=== PATIENT | female | born 1975 | race Two or more races ===

== ENCOUNTER 2018-07-02 19:25 | Emergency (ER) | payer OTHER ==
[2018-07-02 19:32] VITALS: BP 133/63; PULSE 85; BMI 25.4
--- NOTE | 2018-07-02 19:35 | PDOC ---
History of Present Illness - History of Present Illness Initial Comments: 07/02/18 20:44 Patient is a 42 year old female with a significant past medical history of Sarcoidosis, Afib, who presents to the ED with complaints of left arm numbness that began this morning. Patient reports experiencing constant left arm numbness that she states begins at her elbow and travels down to her finger tips. She reports left arm numbness feels like a tingling, pins and needle sensation. Patient reports going to Urgent care this afternoon and was advised to come into the ED for further evaluation after results indicated she had an elevated D dimer. Denies chest pain, Sob. Denies nausea, vomiting. Denies fevers, chills. Denies contact with sick individuals, out of state travelling. Denies constipation, diarrhea. Denies dysuria, hematuria. Denies trauma to affected area. Denies any other symptoms. Allergies: None Social history: No smoking. No illicit drugs. No alcohol. Surgical history: None PMD: Dr. Glover Adult ROS General: No fevers or chills, no weakness, no weight loss HEENT: No change in vision. No sore throat, No ear pain Cardiovascular: No chest pain or shortness of breath Respiratory:No cough, or wheezing. Gastrointestinal: No nausea, vomiting, diarrhea or constipation, No rectal bleeding Genitourinary: No dysuria, hematuria, or frequency Musculoskeletal: No joint or muscle pain or swelling Neurologic: No headache, vertigo, dizziness or loss of consciousness Psychiatric: No depression Skin: No rashes or easy bruising Endocrine: No increased thirst or abnormal weight change Allergic: No skin or latex allergy All other systems reviewed and normal Adult PE General: Well-nourished well-developed individual, no acute distress HEENT: Throat: Normal, tonsils normal, no erythema or exudate Neck: Supple, no meningeal signs, no lymphadenopathy Eyes:Pupils equal reactive and round, extraocular motion intact Chest: Nontender to palpation Cardiac: S1-S2 normal, regular rate and rhythm, no murmurs rubs or gallops Respiratory: Lungs clear to auscultation bilateral Abdomen: Soft, nondistended, normal bowel sounds, nontender to palpation diffusely Extremities: Warm, dry, no cyanosis, clubbing, or edema Skin: No rashes Neuro: Alert and oriented x3, nonfocal exam, grossly intact, normal gait Psych: Normal mood and affect <Charles,Stevie - Last Filed: 07/02/18 20:44> - General History Source: Patient Exam Limitations: No Limitations - History of Present Illness Initial Comments: A portion of this note was documented by scribe services under my direction. I have reviewed the details of the note, within reason, and agree with the documentation with the following case summary and management plan written by me. Patient treated in the ED. Nursing notes are reviewed and incorporated into the medical decision-making. Vital signs reviewed. Assessment and plan: This is a 42-year-old female who comes in after being sent in from the urgent care center for evaluation. Patient has a history of sarcoidosis and has had 1 day of chest pain with some associated arm discomfort. Patient had a d-dimer done at the urgent care center and was told that it was elevated and she should come to the emergency department for further evaluation 07/02/18 23:18 Cardiogram shows normal sinus arrhythmia with a rate of 75 normal intervals no acute ST-T wave changes CT angiogram of her chest is negative for any acute pathology, specifically no pulmonary embolism CT of her head is negative for any acute pathology Patient discharged home will follow up with her sarcoidosis daughter DrZakia <Flip Gayle I - Last Filed: 07/02/18 23:21> - General Chief Complaint: Pain, Acute Stated Complaint: ELEVATED D-DIMER/CHEST PAIN Time Seen by Provider: 07/02/18 19:34 Past History <Stevie Soto - Last Filed: 07/02/18 20:44> - Past Medical History Cardiac Disorders: (MVP) COPD: No Other medical history: SARCODOSIS - Suicide/Smoking/Psychosocial Hx Smoking History: Never smoked Have you smoked in the past 12 months: No Information on smoking cessation initiated: No Hx Alcohol Use: No Drug/Substance Use Hx: No Substance Use Type: None <Flip Gayle I - Last Filed: 07/02/18 23:21> - Past Medical History Allergies/Adverse Reactions: Allergies Allergy/AdvReac Type Severity Reaction Status Date / Time No Known Allergies Allergy Verified 07/02/18 19:26 Home Medications: Ambulatory Orders NK [No Known Home Medication] 07/02/18 *Physical Exam - Vital Signs Last Vital Signs Temp Pulse Resp BP Pulse Ox 85 16 133/63 100 07/02/18 19:28 07/02/18 19:28 07/02/18 19:28 07/02/18 19:28 <Stevie Soto - Last Filed: 07/02/18 20:44> - Vital Signs Last Vital Signs Temp Pulse Resp BP Pulse Ox 85 16 133/63 100 07/02/18 19:28 07/02/18 19:28 07/02/18 19:28 07/02/18 19:28 <Flip Gayle I - Last Filed: 07/02/18 23:21> Moderate Sedation - Procedure Monitoring Vital Signs: Procedure Monitoring Vital Signs Temperature Pulse Rate 85 07/02/18 19:28 Respiratory Rate 16 07/02/18 19:28 Blood Pressure 133/63 07/02/18 19:28 O2 Sat by Pulse Oximetry (%) 100 07/02/18 19:28 <Stevie Soto - Last Filed: 07/02/18 20:44> - Procedure Monitoring Vital Signs: Procedure Monitoring Vital Signs Temperature Pulse Rate 85 07/02/18 19:28 Respiratory Rate 16 07/02/18 19:28 Blood Pressure 133/63 07/02/18 19:28 O2 Sat by Pulse Oximetry (%) 100 07/02/18 19:28 <Flip Gayle I - Last Filed: 07/02/18 23:21> ED Treatment Course - LABORATORY CBC & Chemistry Diagram: 07/02/18 19:45 07/02/18 19:45 - ADDITIONAL ORDERS Additional order review: Laboratory Results 07/02/18 07/02/18 07/02/18 19:45 19:45 19:45 Sodium 134 L Potassium 4.0 Chloride 105 Carbon Dioxide 27 Anion Gap 2 L BUN 14 Creatinine 0.8 Creat Clearance w eGFR > 60 Random Glucose 95 Calcium 9.0 Total Bilirubin 0.3 AST 20 ALT 12 Alkaline Phosphatase 71 Creatine Kinase 111 Troponin I Total Protein 7.9 Albumin 4.1 Urine Color Yellow Urine Appearance Clear Urine pH 7.0 Ur Specific [place] 1.025 Urine Protein Negative Urine Glucose (UA) Negative Urine Ketones Negative Urine Blood 1+ H Urine Nitrite Negative Urine Bilirubin Negative Urine Urobilinogen 2.0 H Ur Leukocyte Esterase Negative Urine RBC 2-5 Urine WBC 0-2 Ur Epithelial Cells 1+ Urine Bacteria 1+ Urine HCG, Qual Negative 07/02/18 19:45 Sodium Potassium Chloride Carbon Dioxide Anion Gap BUN Creatinine Creat Clearance w eGFR Random Glucose Calcium Total Bilirubin AST ALT Alkaline Phosphatase Creatine Kinase Troponin I < 0.03 Total Protein Albumin Urine Color Urine Appearance Urine pH Ur Specific [place] Urine Protein Urine Glucose (UA) Urine Ketones Urine Blood Urine Nitrite Urine Bilirubin Urine Urobilinogen Ur Leukocyte Esterase Urine RBC Urine WBC Ur Epithelial Cells Urine Bacteria Urine HCG, Qual 07/02/18 19:45 RBC 3.76 MCV 90.3 MCHC 33.4 RDW 12.5 MPV 9.2 Neutrophils % 52.4 Lymphocytes % 31.5 Monocytes % 10.9 H Eosinophils % 3.7 Basophils % 1.5 <Stevie Soto - Last Filed: 07/02/18 20:44> - LABORATORY CBC & Chemistry Diagram: 07/02/18 19:45 07/02/18 19:45 <Flip Gayle I - Last Filed: 07/02/18 23:21> *DC/Admit/Observation/Transfer - Attestations Scribe Attestion: 07/02/18 20:45 Documentation prepared by Stevie Soto, acting as medical chemist for Flip Gayle MD. <Stevie Soto - Last Filed: 07/02/18 20:44> - Discharge Dispostion Decision to Admit order: No <Flip Gayle I - Last Filed: 07/02/18 23:21> Diagnosis at time of Disposition: Atypical chest pain - Discharge Dispostion Disposition: HOME Condition at time of disposition: Stable - Referrals Referrals: Nita Glover [Primary Care Provider] - - Patient Instructions Additional Instructions: For the pain take Tylenol or Motrin as directed on the bottle. Calll your , that treats your sarcoi, in the morning for an appointment to follow-up this week if possible. Return to the emergency department immediately with ANY new, persistent or worsening symptoms. Continue any medications as previously prescribed by your physician. You should follow up with your primary doctor as soon as possible regarding today's emergency department visit. . Please make sure your doctor reviews the results of your emergency evaluation. Thank you for coming to the Emergency Department today for your care. It was a pleasure to see you today. Please note that your evaluation is INCOMPLETE until you follow-up with your doctor. - Post Discharge Activity
[2018-07-02 19:52] LABS: URINE APPEARANCE Clear; URINE BILIRUBIN Negative (NEGATIVE); URINE COLOR Yellow; URINE GLUCOSE (UA) Negative (NEGATIVE); URINE KETONE Negative (NEGATIVE); URINE LEUK ESTERASE Negative (NEGATIVE); URINE NITRITE Negative (NEGATIVE); URINE PROTEIN Negative (NEGATIVE)
[2018-07-02 19:58] LABS: HCG,QUALITATIVE URINE Negative
[2018-07-02 20:01] LABS: BASO % 1.5 % (0-2.0); EOS % 3.7 % (0-4.5); HEMOGLOBIN 11.4 GM/dl (10.7-15.3); LYMPH % 31.5 % (8-40); MCH 30.2 pg (25.7-33.7); MCHC 33.4 g/dl (32.0-36.0); MEAN CELL VOLUME 90.3 fl (80-96); MEAN PLT VOLUME 9.2 fl (7.5-11.1); MONO % 10.9 % (3.8-10.2); NEUT % 52.4 % (42.8-82.8); PLATELET COUNT 309 K/MM3 (134-434); RBC 3.76 M/mm3 (3.60-5.2); RDW 12.5 % (11.6-15.6); WHITE BLOOD COUNT 5.2 K/mm3 (4.0-10.8)
[2018-07-02 20:07] LABS: EPI CELLS 1+ /HPF; URINE WBC 0-2 (0-5)
[2018-07-02 20:08] LABS: URINE BACTERIA 1+ /hpf (NEGATIVE)
[2018-07-02 20:14] LABS: ALBUMIN 4.1 g/dl (3.5-5.0); ALK PHOS 71 U/L (32-92); ANION GAP 2 MMOL/L (8-16); BILIRUBIN,TOTAL 0.3 mg/dl (0.2-1.0); BLOOD UREA NITROGEN 14 mg/dl (7-18); CHLORIDE 105 mmol/L (98-107); CO2 27 mmol/L (22-28); CREATININE 0.8 mg/dl (0.6-1.3); GLUCOSE,RANDOM 95 mg/dl (74-106); SGOT/AST 20 U/L (10-42); SGPT/ALT 12 U/L (10-40); SODIUM 134 mmol/L (136-145); TOT PROT 7.9 g/dl (6.4-8.3)
--- NOTE | 2018-07-03 10:12 | EKG ---
Test Reason : Blood Pressure : / mmHG Vent. Rate : 075 BPM Atrial Rate : 075 BPM P-R Int : 156 ms QRS Dur : 074 ms QT Int : 382 ms P-R-T Axes : 076 070 066 degrees QTc Int : 426 ms SINUS RHYTHM WITH MARKED SINUS ARRHYTHMIA OTHERWISE NORMAL ECG NO PREVIOUS ECGS AVAILABLE Confirmed by VENUS ACUÑA MD ([id number]) on 07/03/2018 10:12:41 AM Referred By: DR KOCH Confirmed By:VENUS ACUÑA MD
== END 2018-07-02 23:33 | disposition home or self-care (01) ==
LOC: FER 19:25
DX: R07.89 Other chest pain (principal); D86.9 Sarcoidosis, unspecified
CPT/HCPCS: 36415; 70450-TC; 71275-TC; 80053; 81003; 81015; 82550; 84484; 84703; 85025; 93005; 99281-25